=== PATIENT | female | born 1970 | race Caucasian/White ===

== ENCOUNTER 2018-01-13 06:46 | Day surgery (SDC) | payer BC, OTHER ==
[~2018-01-13 06:46] MED LIST: Lactated Ringers 1,000 ML IV SCH
--- NOTE | 2018-01-13 07:15 | PCM.PREANE ---
Preanesthetic Assessment - Anesthesia/Transfusion/Family Hx Anesthesia History: Prior Anesthesia Without Reaction Family History of Anesthesia Reaction: No Transfusion History: No Prior Transfusion(s) Type of Transfusion Reactions: Reports: Unknown Intubation History: Unknown - Review of Systems General: No Symptoms Pulmonary: No Symptoms Cardiovascular: No Symptoms Gastrointestinal: Abdominal Pain, Constipation Neurological: No Symptoms Other: Reports: None - Physical Assessment O2 Sat by Pulse Oximetry: 100 Respiratory Rate: 16 Vital Signs: Last Vital Signs Temp 36.4 C 01/13/18 07:01 Pulse 64 01/13/18 07:01 Resp 16 01/13/18 07:01 BP 131/60 01/13/18 07:01 Pulse Ox 100 01/13/18 07:01 Height: 1.57 m Weight: 51.256 kg ASA Class: 2 Mental Status: Alert & Oriented x3 Airway Class: Mallampati = 2 Dentition: Reports: Dentures (upper and lower) Thyro-Mental Finger Breadths: 3 Mouth Opening Finger Breadths: 3 ROM/Head Extension: Full Lungs: Clear to Auscultation, Normal Respiratory Effort Cardiovascular: Regular Rate, Regular Rhythm - Allergies Allergies/Adverse Reactions: Allergies Allergy/AdvReac Type Severity Reaction Status Date / Time coconut Allergy Hives Verified 01/08/18 08:59 Penicillins Allergy Anaphylactic Verified 01/08/18 08:59 Shock - Blood Blood Available: No - Anesthesia Plan Pre-Op Medication Ordered: None - Acknowledgements Anesthesia Type Planned: MAC Pt an Appropriate Candidate for the Planned Anesthesia: Yes Alternatives and Risks of Anesthesia Discussed w Pt/Guardian: Yes Pt/Guardian Understands and Agrees with Anesthesia Plan: Yes PreAnesthesia Questionnaire HEENT History: Reports: Impaired Vision, Other (See Below) Other HEENT History: wears glasses, top and bottom dentures Cardiovascular History: Reports: None Respiratory History: Reports: None Gastrointestinal History: Reports: GERD, Other (See Below) (h/o gastric ulcer) Genitourinary History: Reports: None 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 (See Below) Other OB/BYN History: abnormal pap, ascus, mild dysplasia Musculoskeletal History: Reports: Fracture Other Musculoskeletal History: hx fx clavicle, finger and left wrist Neurological History: Reports: Migraines Psychiatric History: Reports: Anxiety, Other (See Below) (h/o depression) Endocrine/Metabolic History: Reports: None Hematologic History: Reports: None Immunologic History: Reports: None Oncologic (Cancer) History: Reports: None (breast cancer with lumpectomy and radiation (finished 11/26)), Breast Dermatologic History: Reports: None - Past Surgical History Head Surgeries/Procedures: Reports: None GI Surgical History: Reports: Appendectomy, Hernia, Inguinal Female Surgical History: Reports: Breast Biopsy, Tubal Ligation Other Female Surgeries/Procedures: hx breast lumpectomy - SUBSTANCE USE Smoking Status *Q: Current Every Day Smoker (< 1ppd) Tobacco Use Within Last Twelve Months: Cigarettes Recreational Drug Use History: No - HOME MEDS Home Medications: Home Meds Acetaminophen [Tylenol Extra Strength] 2 tab PO ASDIRECTED PRN 01/08/18 [History ] Multivit-Min/Iron/Folic/[id number] [Hair, Skin and Nails Tablet] 1 tab PO DAILY [History] Multivits,Ca,Minerals/Iron/FA [One-A-Day Women's] 1 tab PO DAILY 01/08/18 [ History] Pantoprazole Sodium 40 mg PO DAILY 01/08/18 [History] Tamoxifen Citrate 20 mg PO DAILY 01/08/18 [History] - CURRENT (IN HOUSE) MEDS Current Meds: Current Medications Lactated Ringer's (Ringers, Lactated) 1,000 mls @ 125 mls/hr IV ASDIRECTED HESHAM Last Admin: 01/13/18 07:07 Dose: 125 mls/hr
[2018-01-13] MEDS ORDERED: Lidocaine 2% 5 ML SDV ONE (07:24)
[2018-01-13] MEDS ORDERED: fentaNYL 100 MCG/2 ML SDV ONE (07:25)
[2018-01-13] MEDS ORDERED: Propofol 200 MG/20 ML SDV ONE (07:25)
[2018-01-13] MEDS ORDERED: Midazolam 1 MG/ML 2 ML SDV ONE (07:25)
[2018-01-13] MEDS ORDERED: Lactated Ringers 1,000 ML IV SCH (08:45)
--- NOTE | 2018-01-13 08:46 | PCM.OPNOTE ---
- General Post-Op/Procedure Note Date of Surgery/Procedure: 01/13/18 Operative Procedure(s): Esophagogastroduodenoscopy with biopsy. Colonoscopy with cold cecal and rectal polypectomies. Pre Op Diagnosis: Progressive gastroesophageal reflux. Change in bowel habits with abdominal pain. Desire for colorectal cancer screening. Post-Op Diagnosis: Mild gastritis. No hiatal hernia. Cecal and rectal polyps. Anesthesia Technique: MAC (ASA II) Primary Surgeon: Ruy Arce Condition: Good Free Text/Narrative:: DICTATION [id number] CPT CODE [id number]
--- NOTE | 2018-01-13 08:58 | PCM.POSTAN ---
POST ANESTHESIA ASSESSMENT - MENTAL STATUS Mental Status: Alert - RESPIRATORY Respiratory Status: Respiratory Rate WNL, Airway Patent, O2 Saturation Stable - CARDIOVASCULAR CV Status: Pulse Rate WNL, Blood Pressure Stable - GASTROINTESTINAL GI Status: No Symptoms - PAIN Pain Score: 0 - POST OP HYDRATION Hydration Status: Adequate & Stable - OBSERVATIONS Free Text/Narrative:: no anesthesia problems
[2018-01-13 09:52] VITALS: BP 114/60
--- NOTE | 2018-01-15 06:19 | OR ---
SURGEON: Ruy Arce M.D. DATE OF PROCEDURE: 01/13/2018 OPERATION PERFORMED: Esophagogastroduodenoscopy with biopsy. ANESTHESIA: MAC. ASA CLASSIFICATION: II. PREOPERATIVE DIAGNOSIS: Persistent gastroesophageal reflux. POSTOPERATIVE DIAGNOSIS: Mild gastritis. No esophagitis. DESCRIPTION OF PROCEDURE: The patient was taken to the endoscopy room and positioned on the endoscopy table in the supine position. Time-out was called for appropriate identification of the patient and procedure. Monitored anesthesia care was provided. The gastroscope was inserted into the mouth and advanced without difficulty through the esophagus and stomach into the duodenum where examination was carried out in a retrograde fashion. The duodenum shows no acute inflammatory changes or ulcerations. The stomach does show mild gastritis. Antral biopsies were obtained to look for the presence of Helicobacter pylori. The gastroscope was then retroflexed to visualize the proximal stomach. No hiatal hernia was noted. No inflammatory changes, ulcerations, or polyps were encountered in the proximal stomach. The gastroscope was then straightened and slowly withdrawn. The GE junction is sharply defined and shows no acute inflammatory changes. GE junction was noted at 40 cm from the incisors. The scope was then slowly withdrawn through the esophagus. The esophagus itself demonstrates good contractility. No mid or proximal lesions were identified. The vocal cords were briefly visualized as the scope was withdrawn and noted to move symmetrically. The gastroscope was then removed with the patient having tolerated the procedure well. Following colonoscopy, she was taken to recovery room in stable condition. RANDY ROTHMAN /[id number]
--- NOTE | 2018-01-15 06:19 | OR ---
SURGEON: Ruy Arce M.D. DATE OF PROCEDURE: 01/13/2018 OPERATION PERFORMED: Colonoscopy with cold cecal and rectal polypectomies. ANESTHESIA: MAC. ASA CLASSIFICATION: II. PREOPERATIVE DIAGNOSES: 1. Change in bowel habits. 2. Abdominal pain. 3. Desire for colorectal cancer screening. POSTOPERATIVE DIAGNOSES: 1. Cecal polyp. 2. Rectal polyps. DESCRIPTION OF PROCEDURE: With the patient having completed upper GI endoscopy, she was now rotated into the left lateral decubitus position. The colonoscope was inserted into the rectum and advanced with minimal difficulty to the cecum. The cecum was identified by internal landmarks with external pressure. The colonoscope was retroflexed to visualize the ascending colon from below, then straightened and slowly withdrawn. One small polyp was encountered in the cecum and this was removed with the cold biopsy forceps. The ascending colon, hepatic flexure, transverse colon, splenic flexure, descending colon, and sigmoid colon showed no tumors, polyps, diverticula, or angiodysplastic changes. Several small polyps were encountered in the same area in the rectum and removed with the cold biopsy forceps. They were sent as one specimen. The colonoscope was retroflexed in the rectum to visualize the anal orifice from above. Again, no tumors or polyps were seen and there were no acute hemorrhoidal changes. The colonoscope was then straightened, the rectum aspirated, and the colonoscope removed. The patient tolerated the procedure well and was taken to recovery room in stable condition. RANDY ROTHMAN /[id number]
== END 2018-01-13 09:54 | disposition home or self-care (01) ==
LOC: MW.SDS 06:46
PROVIDERS: ATTEND Surgery
DX: R19.4 Change in bowel habit (principal); K63.5 Polyp of colon; K62.1 Rectal polyp; K29.50 Unspecified chronic gastritis without bleeding; F17.210 Nicotine dependence, cigarettes, uncomplicated; K21.9 Gastro-esophageal reflux disease without esophagitis; Z88.0 Allergy status to penicillin; Z91.018 Allergy to other foods
CPT/HCPCS: 43239; 45380; 81025; J2250; J3010; J7120; 00813; 88305; 88312; J2704

== ENCOUNTER 2019-07-22 06:33 | Day surgery (SDC) | payer OTHER ==
[2019-07-22] MEDS ORDERED: Lactated Ringers 1,000 ML IV SCH (06:45)
[2019-07-22] MEDS ORDERED: Ondansetron 4 MG/2 ML SDV ONE (07:07)
[2019-07-22] MEDS ORDERED: Glycopyrrolate 0.2 MG/ML SDV ONE ×2 (07:07→08:21)
[2019-07-22] MEDS ORDERED: Neostigmine Methylsulfate 1 MG/ML 5 ML Syringe ONE (07:07)
[2019-07-22] MEDS ORDERED: Lidocaine 2% 5 ML SDV ONE (07:07)
[2019-07-22] MEDS ORDERED: Midazolam 1 MG/ML 2 ML SDV ONE (07:08)
[2019-07-22] MEDS ORDERED: Propofol 200 MG/20 ML SDV ONE (07:08)
[2019-07-22] MEDS ORDERED: fentaNYL 250 MCG/5 ML SDV ONE (07:08)
[2019-07-22] MEDS ORDERED: ceFAZolin 1 GM Vial ONE (07:22)
--- NOTE | 2019-07-22 07:41 | PCM.PREANE ---
Preanesthetic Assessment - Anesthesia/Transfusion/Family Hx Anesthesia History: Prior Anesthesia Without Reaction Family History of Anesthesia Reaction: No Transfusion History: No Prior Transfusion(s) Type of Transfusion Reactions: Reports: Unknown Intubation History: Unknown - Review of Systems General: No Symptoms Pulmonary: No Symptoms Cardiovascular: No Symptoms Gastrointestinal: No Symptoms Neurological: No Symptoms Other: Reports: None - Physical Assessment Vital Signs: Last Vital Signs Temp 97.5 F 07/22/19 06:40 Pulse 72 07/22/19 06:40 Resp 16 07/22/19 06:40 BP 103/71 07/22/19 06:40 Pulse Ox 96 07/22/19 06:40 Height: 5 ft 2 in Weight: 52.163 kg ASA Class: 2 Mental Status: Alert & Oriented x3 Airway Class: Mallampati = 2 Dentition: Reports: Dentures (both upper and lower, upper are difficult to remove, are still in place) ROM/Head Extension: Full Lungs: Clear to Auscultation, Normal Respiratory Effort Cardiovascular: Regular Rate, Regular Rhythm - Lab Values: Laboratory Last Values Urine HCG, Qual NEGATIVE (NEGATIVE) 07/22/19 07:16 - Allergies Allergies/Adverse Reactions: Allergies Allergy/AdvReac Type Severity Reaction Status Date / Time coconut Allergy Hives Verified 01/08/18 08:59 Penicillins Allergy Anaphylactic Verified 07/17/19 09:49 Shock - Blood Blood Available: No - Anesthesia Plan Pre-Op Medication Ordered: None - Acknowledgements Anesthesia Type Planned: General Anesthesia Pt an Appropriate Candidate for the Planned Anesthesia: Yes Alternatives and Risks of Anesthesia Discussed w Pt/Guardian: Yes Pt/Guardian Understands and Agrees with Anesthesia Plan: Yes Additional Comments: PMH: gerd, breast ca on L, smoker- has cut down to 1 cig/day but has appearance of chronic smoker PLAN: get, caution with upper plate, will consider block post op in PACU, has needle phobia since chemo experience, risks and benefits of ISB explained. 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: Other OB/BYN History: abnormal pap, ascus, mild dysplasia Musculoskeletal History: Reports: Fracture Other Musculoskeletal History: hx of fx left wrist, clavicle and fingers Neurological History: Reports: Concussion Psychiatric History: Reports: Anxiety, Other (See Below) (h/o depression) Endocrine/Metabolic History: Reports: None Hematologic History: Reports: None Immunologic History: Reports: None Oncologic (Cancer) History: Reports: Breast Dermatologic History: Reports: None - Past Surgical History Head Surgeries/Procedures: Reports: None GI Surgical History: Reports: Appendectomy, Colonoscopy, Hernia, Inguinal Female Surgical History: Reports: Breast Biopsy, Tubal Ligation, Other (See Below) Other Female Surgeries/Procedures: left breast Lumpectomy with Sentinal Node bx for breast cancer Oncologic Surgical History: Reports: Lumpectomy - SUBSTANCE USE Smoking Status *Q: Current Every Day Smoker Tobacco Use Within Last Twelve Months: Cigarettes Recreational Drug Use History: No - HOME MEDS Home Medications: Home Meds Acetaminophen [Tylenol Extra Strength] 2 tab PO ASDIRECTED PRN 01/08/18 [History ] Pantoprazole Sodium 40 mg PO DAILY 01/08/18 [History] Tamoxifen Citrate 20 mg PO DAILY 01/08/18 [History] Aspirin [Adult Low Dose Aspirin EC] 81 mg PO DAILY 07/17/19 [History] Ibuprofen 600 mg PO QID PRN 07/17/19 [History] - CURRENT (IN HOUSE) MEDS Current Meds: Current Medications Lactated Ringer's (Ringers, Lactated) 1,000 mls @ 125 mls/hr IV ASDIRECTED HESHAM Discontinued Medications Cefazolin Sodium (Ancef) Confirm Administered Dose 1 gm .ROUTE .STK-MED ONE Stop: 07/22/19 07:23 Fentanyl (Sublimaze) Confirm Administered Dose 250 mcg .ROUTE .STK-MED ONE Stop: 07/22/19 07:09 Glycopyrrolate (Robinul) Confirm Administered Dose 0.4 mg .ROUTE .STK-MED ONE Stop: 07/22/19 07:08 Lidocaine (Xylocaine-Mpf 2%) Confirm Administered Dose 5 ml .ROUTE .STK-MED ONE Stop: 07/22/19 07:08 Midazolam HCl (Versed 1 Mg/Ml) Confirm Administered Dose 2 mg .ROUTE .STK-MED ONE Stop: 07/22/19 07:09 Neostigmine Methylsulfate (Neostigmine) Confirm Administered Dose 5 mg .ROUTE .STK-MED ONE Stop: 07/22/19 07:08 Ondansetron HCl (Zofran) Confirm Administered Dose 4 mg .ROUTE .STK-MED ONE Stop: 07/22/19 07:08 Propofol (Diprivan 20 Ml) Confirm Administered Dose 200 mg .ROUTE .STK-MED ONE Stop: 07/22/19 07:09
[2019-07-22] MEDS ORDERED: Clindamycin Phosphate in D5W 600 MG in Premix Bag 1 BAG IV ONE ×2 (07:47)
[2019-07-22] MEDS ORDERED: Clindamycin Phosphate in D5W 50 ML ONE (07:48)
[2019-07-22] MEDS ORDERED: Phenylephrine/Normal Saline 100 MCG/ML 10 ML Syringe ONE (08:23)
[2019-07-22] MEDS ORDERED: Bupivacaine 25%/EPINEPHrine/PF 30 ML ONE (08:33)
[2019-07-22] MEDS ORDERED: Rocuronium 100 MG/10 ML Syringe ONE (08:50)
[2019-07-22] MEDS ORDERED: EPINEPHrine 1:10,000 1 MG/10 ML Syringe IVPUSH PRN (08:54)
[2019-07-22] MEDS ORDERED: 50% Dextrose in Water 50 ML Syringe IVPUSH PRN (08:54)
[2019-07-22] MEDS ORDERED: Atropine 0.1 MG/ML 10 ML Syringe IVPUSH PRN ×2 (08:54)
[2019-07-22] MEDS ORDERED: Albuterol 0.083% 2.5 MG/3 ML Neb Soln NEB PRN (08:54)
[2019-07-22] MEDS ORDERED: Naloxone 0.4 MG/ML Syringe IVPUSH PRN (08:54)
[2019-07-22] MEDS ORDERED: Ketorolac 30 MG/ML SDV ONE (09:03)
[2019-07-22] MEDS ORDERED: oxyCODONE 5 MG Tab PO PRN (09:29)
[2019-07-22] MEDS ORDERED: Ibuprofen 800 MG Tab PO PRN (09:32)
[2019-07-22] MEDS ORDERED: fentaNYL 100 MCG/2 ML SDV ONE (09:39)
[2019-07-22] MEDS: fentaNYL 100 MCG/2 ML SDV IVPUSH PRN ×2 (09:41→09:54)
[2019-07-22] MEDS ORDERED: Dexamethasone 4 MG/ML 5 ML MDV ONE (09:46)
--- NOTE | 2019-07-22 10:00 | PCM.SN ---
- Free Text/Narrative Note: procedure note ISB in PACU, post op for post op analgesia pt awoke in more pain than expected and requesthed the previously discussed and consented ISB. no additional sedation given. local skin analgesia with 1/2 ml bupiv. isb needle introduced 2-3 mm with good ant twitch estinguished at .25. bupiv 20 ml of 0.5% given in 5 ml increments. no comps. observation continued in PACU.
--- NOTE | 2019-07-22 12:28 | PCM.OPNOTE ---
- General Post-Op/Procedure Note Date of Surgery/Procedure: 07/22/19 Operative Procedure(s): Right shoulder open rotator cuff repair and acromnioplasty Findings: Right full thickness supraspinatus rotator cuff tear Pre Op Diagnosis: Right full thickness supraspinatus rotator cuff tear Post-Op Diagnosis: Right full thickness supraspinatus rotator cuff tear Anesthesia Technique: General ET Tube Primary Surgeon: Dylan Wolf Stain Remover: Althea Ureña Stain Remover Was Necessary: Patient positioning and retraction EBL in mLs: 10 Complications: None Condition: Good Free Text/Narrative:: Patient was consented for an open rotator cuff repair and acromioplasty for the right shoulder. Patient consented to proceed with surgery. Patient was taken to the operating room. After general anesthesia, she was placed in a beachchair position. The right shoulder and upper extremity were prepped and draped in the usual sterile manner. An oblique incision was made over the anterolateral corner of the acromion. Skin was incised with a scalpel. Subcutaneous tissue was incised with electrocautery. The deltoid raphae was identified and split longitudinally. The deltoid was elevated subperiosteally medially and laterally exposing the anterior acromion. An acromioplasty was performed with an oscillating saw taking an anterior cut and then a small inferior cut. The undersurface of the acromion was then smoothed with a rasp. The rotator cuff tear was identified and was small in size, a proximally 1 cm. The degenerative tissue was excised with the scalpel. The tendon was then repaired back to the greater tuberosity after preparing a bleeding bed and the greater tuberosity. This was done through bone tunnel with #2 over wire suture and a Thien-Jeffery type suture. Tear was further closed with the side to side suture. The deltoid was then repaired back to the acromion with #5 Ethibond through bone tunnels in the acromion. The gallbladder was impaired with interrupted [id number] #1 Vicryl suture. Subcutaneous tissue was closed with interrupted 2-0 Vicryl suture. Skin was closed with 3-0 Stratafix. A sterile dressing was applied and the patient was placed in a sling and accompanied to the recovery room in stable condition. Pain management: Ibuprofen, acetaminophen, and oxycodone Venous thromboembolism prophylaxis not indicated for shoulder soft tissue procedure Restrictions: Patient should be in a sling for 6 weeks with no active range of motion but pendulum exercises 3-4 times per day. At 6 weeks, discontinue the sling and begin active range of motion exercises with no lifting greater than 1 pound. At 3 months begin rotator cuff strengthening exercises. Intake & Output 07/21/19 07/22/19 07/22/19 22:59 06:59 14:59 Intake Total 1400 Balance 1400
[2019-07-22 12:32] VITALS: BP 95/62; PULSE 68
--- NOTE | 2019-07-22 13:24 | PCM48HPAN ---
Post Anesthesia Note - EVALUATION WITHIN 48HRS OF ANESTHETIC Vital Signs in Normal Range: Yes Patient Participated in Evaluation: Yes Respiratory Function Stable: Yes Airway Patent: Yes Cardiovascular Function Stable: Yes Hydration Status Stable: Yes Pain Control Satisfactory: Yes Nausea and Vomiting Control Satisfactory: Yes Mental Status Recovered: Yes Vital Signs: Last Vital Signs Temp 97.2 F 07/22/19 10:07 Pulse 68 07/22/19 11:00 Resp 16 07/22/19 11:00 BP 95/62 07/22/19 11:00 Pulse Ox 98 07/22/19 11:00
== END 2019-07-22 11:55 | disposition home or self-care (01) ==
LOC: MW.SDS 06:33
PROVIDERS: ATTEND Orthopaedic Surgery
DX: M75.121 Complete rotator cuff tear or rupture of right shoulder, not specified as traumatic (principal); G89.18 Other acute postprocedural pain; K21.9 Gastro-esophageal reflux disease without esophagitis; F41.9 Anxiety disorder, unspecified; F32.9 Major depressive disorder, single episode, unspecified; F17.210 Nicotine dependence, cigarettes, uncomplicated; Z88.0 Allergy status to penicillin; Z91.018 Allergy to other foods; Z79.899 Other long term (current) drug therapy
CPT/HCPCS: 23412; 64415; 81025; J1100; J1885; J2001; J2250; J2370; J2405; J2704; J3010; J3490; J7120; S0077; J0690

== ENCOUNTER 2020-03-08 13:05 | Emergency (ER) | payer OTHER ==
--- NOTE | 2020-03-08 14:42 | EDM.PDOC ---
ED [facility] GENERAL MEDICAL PROBLEM - General Chief Complaint: Eye Problems Stated Complaint: EYE SWELLING Time Seen by Provider: 03/08/20 13:30 Source of Information: Reports: Patient, Old Records History Limitations: Reports: No Limitations - History of Present Illness INITIAL COMMENTS - FREE TEXT/NARRATIVE: 49-year-old female with past medical history of breast cancer in remission presenting with right eye swelling. 2-day history of swelling to the upper and lower eyelids on the right side. Denies any wounds, fever, chills, nausea, vomiting. No foreign body sensation, no pain to the globe, no visual disturbance, no pain with globe movement, no swelling to the globe. Denies headache, neck pain, jaw pain, difficulty swallowing. No self treatment prior to arrival. ROS: A 10-point review of systems was negative, except as noted in the HPI (or in the ROS section of this note). Past medical history: Reviewed, no additional pertinent history. Surgical history: Reviewed in system, no additional pertinent history. Social history: Reviewed in system, no additional pertinent history. Family history: Reviewed in system, no additional pertinent history. PHYSICAL EXAM Vital signs reviewed. Nursing notes reviewed. Constitutional: Awake, alert, non-distressed. Head: Normocephalic, atraumatic. Swelling to the right upper and lower eyelids. Eyes: EOMI, conjunctiva normal, no discharge, no scleral icterus. Pupils 3 mm bilaterally. External and slit examination of the right eye unremarkable. Lids everted and lashes swept, no abnormalities. No proptosis or chemosis. Ears, Nose, Throat: External ears and nose normal, moist oral mucosa. Cardiovascular: 2+ radial pulse, capillary refill less than 2 seconds. Pulmonary: normal work of breathing, no accessory muscle use. Abdomen/GI: Soft, nontender, nondistended, no guarding or rigidity, no masses. Musculoskeletal: No deformities. Integumentary: Appropriate color for ethnicity, warm, dry, no pallor or jaundice, no rash. Neurologic: Alert, answering questions appropriately, normal speech, no facial droop, moving all extremities well. Psychiatric: Appropriate mood and affect, normal thought process. below R eye Pain Score (Numeric/FACES): 3 - Related Data Allergies Allergy/AdvReac Type Severity Reaction Status Date / Time coconut Allergy Hives Verified 03/08/20 13:16 Penicillins Allergy Anaphylactic Verified 03/08/20 13:16 Shock Home Meds: Home Meds Acetaminophen [Tylenol Extra Strength] 2 tab PO ASDIRECTED PRN 01/08/18 [History] Pantoprazole Sodium 40 mg PO DAILY 01/08/18 [History] Tamoxifen Citrate 20 mg PO DAILY 01/08/18 [History] Ibuprofen [Motrin] 800 mg PO Q6H PRN #60 tablet 07/22/19 [Rx] Clindamycin HCl 300 mg PO QID 10 Days #40 capsule 03/08/20 [Rx] Past Medical History HEENT History: Reports: Hard of Hearing, Other (See Below) Other HEENT History: wears glasses, has upper and lower dentures, has some hearing loss Cardiovascular History: Reports: None Respiratory History: Reports: None Gastrointestinal History: Reports: GERD Genitourinary History: Reports: None FEEDER CATCHER History: Reports: Other FEEDER CATCHER History: abnormal pap, ascus, mild dysplasia Musculoskeletal History: Reports: Fracture Other Musculoskeletal History: hx of fx left wrist, clavicle and fingers Neurological History: Reports: Concussion Psychiatric History: Reports: Anxiety, Other (See Below) Endocrine/Metabolic History: Reports: None Hematologic History: Reports: None Immunologic History: Reports: None Oncologic (Cancer) History: Reports: Breast Dermatologic History: Reports: None - Infectious Disease History Infectious Disease History: Reports: Chicken Pox - Past Surgical History Head Surgeries/Procedures: Reports: None GI Surgical History: Reports: Appendectomy, Colonoscopy, Hernia, Inguinal Female Surgical History: Reports: Breast Biopsy, Tubal Ligation, Other (See Below) Other Female Surgeries/Procedures: left breast Lumpectomy with Sentinal Node bx for breast cancer Social & Family History - Family History Family Medical History: Noncontributory - Tobacco Use Smoking Status *Q: Current Every Day Smoker Years of Tobacco use: 35 Packs/Tins Daily: 0.5 - Caffeine Use Caffeine Use: Reports: Coffee - Recreational Drug Use Recreational Drug Use: No ED ROS GENERAL - Review of Systems Review Of Systems: See Below ED EXAM GENERAL W FULL EYE - Physical Exam Exam: See Below Visual Acuity (R) 20/: 50 Visual Acuity (L) 20/: 30 With Correction: No Course - Vital Signs Text/Narrative:: Patient hemodynamically stable, afebrile, well-appearing, looks nontoxic. Differential diagnosis includes but is not limited to: Preseptal cellulitis, orbital cellulitis, chemosis, conjunctivitis, corneal ulcer, corneal abrasion, globe injury, etc. Presentation consistent with preseptal cellulitis. Low suspicion for orbital cellulitis given lack of proptosis, chemosis, or pain with eye movement. Patient denies any globe pain or visual disturbance, so low suspicion for a corneal abnormality or process, so we did not pursue fluorescein staining. Not suspicious for acute angle-closure glaucoma given lack of visual disturbance or eye pain. Normal slit lamp examination. No fever or systemic/infectious symptoms such as chills, nausea, or vomiting. We will treat with oral antibiotics. Tylenol or Motrin as needed for pain. Primary care follow-up. Plan: Patient is stable to discharge home with outpatient primary care follow- up. Strict emergency department return precautions were provided, patient indicated understanding. All questions were answered prior to departure. Discharged in good condition. Last Recorded V/S: Last Vital Signs Temp 36.2 C 03/08/20 13:14 Pulse 68 03/08/20 14:46 Resp 17 03/08/20 14:46 BP 100/67 03/08/20 14:46 Pulse Ox 99 03/08/20 14:46 - Orders/Labs/Meds Orders: Active Orders 24 hr Category Date Time Status Slit Lamp to Bedside [RC] ASDIRECTED Care 03/08/20 13:59 Active Visual Acuity [Vision Test] [RC] ASDIRECTED Care 03/08/20 13:29 Active Departure - Departure Time of Disposition: 14:41 Disposition: Home, Self-Care 01 Condition: Good Clinical Impression: Periorbital cellulitis of right eye - Discharge Information *PRESCRIPTION DRUG MONITORING PROGRAM REVIEWED*: Not Applicable *COPY OF PRESCRIPTION DRUG MONITORING REPORT IN PATIENT PIETRO: Not Applicable Prescriptions: Clindamycin HCl 300 mg PO QID 10 Days #40 capsule Instructions: Preseptal Cellulitis, Adult Referrals: Radha Higuera NP [Primary Care Provider] - 1 Week (For follow-up of infection.) Forms: ED Department Discharge Additional Instructions: Thank you for choosing the [facility] emergency department in [place] for your medical needs today. It was a pleasure caring for you. You were seen in the emergency department for facial swelling. Your examination is consistent with preseptal cellulitis, and infection of the skin around the right eye. Examination of the right eye itself looks normal. We will prescribe oral antibiotics, be sure to finish the bottle. Follow-up with your primary medical clinic in about 1 week for reevaluation. Take [id number] Tylenol or Motrin as directed on the package for pain as needed. Please return the emergency department immediately if your symptoms worsen or if you feel worse. The following information is given to patients seen in the emergency department who are being discharged. This information is to outline your options for follow-up care. We provide all patients seen in our emergency department with a follow-up referral. The need for follow-up, as well as the timing and circumstances, are variable d epending upon the specifics of your emergency department visit. If you don't have a primary care physician on staff, we will provide you with a referral. We always advise you to contact your personal physician following an emergency department visit to inform them of the circumstance of the visit and for follow-up with them and/or the need for any referrals to a consulting specialist. The emergency department will also refer you to a specialist when appropriate. This referral assures that you have the opportunity for follow-up care with a specialist. All of these measure are taken in an effort to provide you with optimal care, which includes your follow-up. Under all circumstances we always encourage you to contact your private physician who remains a resource for coordinating your care. When calling for follow-up care, please make the office aware that this follow-up is from your recent emergency room visit. If for any reason you are refused follow-up, please contact the [facility] Emergency Department at and asked to speak to the emergency department charge nurse. If you do not have a primary care physician that is caring for you, you can contact these clinics below to set up an appointment to establish care: [facility] - Primary Care [address] [place] [address] [facility] [address] [place] [address] Sepsis Event Note (ED) - Evaluation Sepsis Screening Result: No Definite Risk - Focused Exam Vital Signs: Vital Signs Temp Pulse Resp BP Pulse Ox 03/08/20 14:46 68 17 100/67 99 03/08/20 13:14 36.2 C 74 18 110/75 99 - My Orders Last 24 Hours: My Active Orders 03/08/20 13:29 Visual Acuity [Vision Test] [RC] ASDIRECTED 03/08/20 13:59 Slit Lamp to Bedside [RC] ASDIRECTED - Assessment/Plan Last 24 Hours: My Active Orders 03/08/20 13:29 Visual Acuity [Vision Test] [RC] ASDIRECTED 03/08/20 13:59 Slit Lamp to Bedside [RC] ASDIRECTED
[2020-03-08 15:26] VITALS: BP 100/67; PULSE 68
== END 2020-03-08 14:46 | disposition home or self-care (01) ==
LOC: MW.ED 13:05
DX: L03.213 Periorbital cellulitis (principal); K21.9 Gastro-esophageal reflux disease without esophagitis; F17.210 Nicotine dependence, cigarettes, uncomplicated; Z88.0 Allergy status to penicillin; Z91.018 Allergy to other foods; Z79.899 Other long term (current) drug therapy
CPT/HCPCS: 99283

== ENCOUNTER 2021-05-08 07:32 | Emergency (ER) | payer OTHER ==
--- NOTE | 2021-05-08 09:00 | US ---
INDICATION: Leg pain and history of recent surgery TECHNIQUE: Ultrasound venous duplex lower left extremity. Compression venous exam was performed using griffin-scale, color Doppler, and spectral Doppler analysis. COMPARISON: None. FINDINGS: Sonographic imaging demonstrates the left common femoral, deep femoral, superficial femoral, popliteal, posterior tibial and greater saphenous and the contralateral right common femoral veins to be fully compressible with normal color Doppler blood flow. IMPRESSION: Normal left lower extremity venous ultrasound, no sign of deep venous thrombosis. Dictated by Sam Peace MD @ 05/08/2021 8:59:49 AM (Electronically Signed)
--- NOTE | 2021-05-08 09:09 | EDM.PDOC ---
ED HPI GENERAL MEDICAL PROBLEM - General Chief Complaint: Lower Extremity Injury/Pain Stated Complaint: REFERRAL FROM [facility]- BLOOD CLOT Time Seen by Provider: 05/08/21 07:42 - History of Present Illness INITIAL COMMENTS - FREE TEXT/NARRATIVE: CHIEF COMPLAINT(S): "I was sent in from [facility] for an ultrasound." HISTORY OF PRESENT ILLNESS: This is a 51-year-old woman with a recent hysterectomy who comes to the emergency department with a chief complaint of "I was sent in from [facility] for an ultrasound." The patient states that approximately 1 week ago she had a hysterectomy. She states that starting yesterday she started to experience pain in her left leg which radiates all the way down on the anterior side. She denies any swelling, redness, numbness, tingling, or weakness. She states that the pain is worse when she lifts her leg. She currently rates her pain as 0 out of 10. She denies any relieving factors. REVIEW OF SYSTEMS: Constitutional: Denies fever, chills. Eyes: Denies eye pain Ears, Nose, Mouth, & Throat: Denies earache Cardiovascular: Denies chest pain Respiratory: Denies shortness of breath Gastrointestinal: Denies Nausea, vomiting, diarrhea, hematochezia. Genitourinary: Denies hematuria Skin:Denies a rash MSK: Positive for left leg pain Neurological: Denies blurred vision, numbness, tingling, weakness Psychiatric: Denies depression PAST MEDICAL HISTORY: As per history of present illness and as reviewed below otherwise noncontributory. SURGICAL HISTORY: As per history of present illness and as reviewed below otherwise noncontributory. SOCIAL HISTORY: As per history of present illness and as reviewed below otherwise noncontributory. FAMILY HISTORY: As per history of present illness and as reviewed below otherwise noncontributory. EXAMINATION OF ORGAN SYSTEMS/BODY AREAS: Constitutional: Blood pressure is 100/70, heart rate seventy-three, respiratory rate sixteen with an oxygen saturation 97% on room air. Temperature 36.2 General: Well-appearing woman who is in no acute distress Psychiatric: Appropriate mood and affect. Eyes: No scleral icterus or conjunctival erythema ENMT: Moist mucous membranes. No pharyngeal erythema Cardiovascular: Regular, rate, and rhythm. No gallops, murmurs, or rubs. Bilateral upper extremity pulses symmetric and intact. No peripheral edema. No JVD. Bilateral lower extremity pulses are symmetric and intact. Capillary refill is less than 2 seconds in distal lower extremities. Skin was warm and pink. Respiratory: Lungs clear to auscultation bilaterally. No wheezes, rales, or rhonchi. Gastrointestinal: Soft, non-tender, non-distended. Normoactive bowel sounds there is evidence of laparoscopic surgical incision sites which are clean dry and intact without any purulent drainage. Genitourinary: No suprapubic tenderness Musculoskeletal: The patient has full range of motion of the left hip, left knee, left ankle. There is no obvious deformity of the left lower extremity or skin changes. Skin: No lesions or abrasions. Neurological: Alert, GCS 15 distal sensation is intact. MEDICAL DECISION MAKING AND COURSE IN THE ED WITH INTERPRETATION/REVIEW OF DIAGNOSTIC STUDIES: This is a 51-year-old with one with a recent hysterectomy who comes to the emergency department with left lower extremity pain who was sent from outside facility for duplex ultrasound of the left lower extremity. At this time the patient does not have any evidence of DVT or evidence of arterial occlusion as evidenced by normal pulses, warm, red skin, no delayed capillary refill, and no sensation deficits. At this time we'll obtain a duplex ultrasonography of the left lower extremity to evaluate for DVT. The radiological images were viewed by myself along with reading the report from the radiologist. Left lower extremity ultrasound does not reveal any evidence of DVT. After imaging I did discuss results with the patient. At this time I did discuss symptomatic treatment at home. I encouraged the patient to return to the emergency department for any red flag symptoms. She was amenable discharge and had no further questions. She is to follow-up with her primary care physician. DISPOSITION: The patient was discharged home in stable condition. The patient will follow up with primary care physician within 3 to 5 days CONDITION: Fair PROCEDURES: None FINAL IMPRESSION(S)/DIAGNOSES: 1. Acute left lower extremity pain likely musculoskeletal Cameron Vazquez M.D. Treatments RESEARCH AND DEVELOPMENT TESTER: Reports: Other (see below) Other Treatments RESEARCH AND DEVELOPMENT TESTER: Percocet at 0600 LLE Pain Score (Numeric/FACES): 7 - Related Data Allergies Allergy/AdvReac Type Severity Reaction Status Date / Time coconut Allergy Hives Verified 05/08/21 07:49 Penicillins Allergy Anaphylactic Verified 05/08/21 07:49 Shock Home Meds: Home Meds Pantoprazole Sodium 40 mg PO DAILY 01/08/18 [History] Tamoxifen Citrate 20 mg PO DAILY 01/08/18 [History] Multivitamin 1 tab PO DAILY 05/08/21 [History] oxyCODONE HCl/Acetaminophen [Percocet 5-325 mg Tablet] 1 tab PO Q6H PRN 05/08/21 [History] Past Medical History HEENT History: Reports: Hard of Hearing, Other (See Below) Other HEENT History: wears glasses, has upper and lower dentures, has some hearing loss Cardiovascular History: Reports: None Respiratory History: Reports: None Gastrointestinal History: Reports: GERD Genitourinary History: Reports: None BUSINESS DEVELOPMENT OFFICER History: Reports: Other BUSINESS DEVELOPMENT OFFICER History: abnormal pap, ascus, mild dysplasia Musculoskeletal History: Reports: Fracture Other Musculoskeletal History: hx of fx left wrist, clavicle and fingers Neurological History: Reports: Concussion Psychiatric History: Reports: Anxiety, Other (See Below) Endocrine/Metabolic History: Reports: None Hematologic History: Reports: None Immunologic History: Reports: None Oncologic (Cancer) History: Reports: Breast Dermatologic History: Reports: None - Infectious Disease History Infectious Disease History: Reports: Chicken Pox - Past Surgical History Head Surgeries/Procedures: Reports: None HEENT Surgical History: Reports: None GI Surgical History: Reports: Appendectomy, Colonoscopy, Hernia, Inguinal Female Surgical History: Reports: Breast Biopsy, Hysterectomy, Tubal Ligation, Other (See Below) Other Female Surgeries/Procedures: left breast Lumpectomy with Sentinal Node bx for breast cancer Musculoskeletal Surgical History: Reports: Other (See Below) Other Musculoskeletal Surgeries/Procedures:: R shoulder sx Oncologic Surgical History: Reports: Lumpectomy Social & Family History - Family History Family Medical History: No Pertinent Family History - Tobacco Use Tobacco Use Status *Q: Current Every Day Tobacco User Years of Tobacco use: 30 Packs/Tins Daily: 0.5 - Caffeine Use Caffeine Use: Reports: Coffee - Recreational Drug Use Recreational Drug Use: No Review of Systems - Review of Systems Review Of Systems: See Below ED EXAM, GENERAL - Physical Exam Exam: See Below Course - Vital Signs Last Recorded V/S: Last Vital Signs Temp 36.1 C 05/08/21 09:30 Pulse 65 05/08/21 09:30 Resp 18 09/27/21 09:30 BP 93/63 05/08/21 09:30 Pulse Ox 98 05/08/21 09:30 Departure - Departure Time of Disposition: 09:08 Disposition: Home, Self-Care 01 Condition: Fair Clinical Impression: Hip pain, Leg pain - Discharge Information *PRESCRIPTION DRUG MONITORING PROGRAM REVIEWED*: No *COPY OF PRESCRIPTION DRUG MONITORING REPORT IN PATIENT PIETRO: No Instructions: Hip Pain, Muscle Strain, [id number], Musculoskeletal Pain Referrals: Radha Higuera KAIAKO KOHANGA REO [Primary Care Provider] - Forms: ED Department Discharge Additional Instructions: You were evaluated today on an emergent basis. At this time your imaging did not reveal any clots. At this time I would like you to treat this as a muscle spasm or strain. Please use ice and heat alternating. If you start to ex perience a cold left leg, it changes color especially white or you are concerned I would like you to return to the emergency department. Otherwise I would like you to follow-up with your primary care physician in 1 to 3 days. [facility] - Primary Care [address] [place] [address] [place] [address] The patient is informed of any results of their evaluation and diagnostic workup and all questions are answered. They are given discharge instructions and return precautions. The patient is stable for discharge. The patient states they understand and agree with the plan and that they will return if their symptoms get worse or if they have any new concerns. The following information is given to patients seen in the emergency department who are being discharged to home. This information is to outline your options for follow-up care. We provide all patients seen in our emergency department with a follow-up referral. The need for follow-up, as well as the timing and circumstances, are variable depending upon the specifics of your emergency department visit. If you don't have a primary care physician on staff, we will provide you with a referral. We always advise you to contact your personal physician following an emergency department visit to inform them of the circumstance of the visit and for follow-up with them and/or the need for any referrals to a consulting s pecialist. The emergency department will also refer you to a specialist when appropriate. This referral assures that you have the opportunity for follow-up care with a specialist. All of these measure are taken in an effort to provide you with optimal care, which includes your follow-up. Under all circumstances we always encourage you to contact your private physician who remains a resource for coordinating your care. When calling for follow-up care, please make the office aware that this follow-up is from your recent emergency room visit. If for any reason you are refused follow-up, please contact the [facility] Emergency Department at and asked to speak to the emergency department charge nurse. Sepsis Event Note (ED) - Evaluation Sepsis Screening Result: No Definite Risk
[2021-05-08 09:37] VITALS: BP 93/63; PULSE 65
== END 2021-05-08 09:34 | disposition home or self-care (01) ==
LOC: MW.ED 07:32
DX: M79.605 Pain in left leg (principal); M25.552 Pain in left hip; K21.9 Gastro-esophageal reflux disease without esophagitis; Z72.0 Tobacco use; Z91.018 Allergy to other foods; Z88.0 Allergy status to penicillin; Z79.899 Other long term (current) drug therapy
CPT/HCPCS: 93971-26-LT; 93971-LT; 99283-25

== ENCOUNTER 2022-01-18 17:43 | Emergency (ER) | payer OTHER | END 2022-01-18 20:46 | disposition left against medical advice (07) | LOC: MW.ED 17:43 | DX: Z53.21 Procedure and treatment not carried out due to patient leaving prior to being seen by health care provider (principal) ==